=== PATIENT | female | born 1995 | race American Indian/Alaskan Native ===

== ENCOUNTER 2020-06-17 11:55 | Emergency (ER) | payer MEDICAID ==
--- NOTE | 2020-06-17 12:31 | Event Note ---
ED Screening Note ED Screening Note: pt states she is having lower abd cramping +nausea no vomiting no vaginal bleeding states she took an at home test and believes it was positive states she also has right eye itching/burning denies getting anything in the eye no vision changes LNMP: 05/25/2020 This initial assessment/diagnostic orders/clinical plan/treatment(s) is/are subject to change based on patients health status, clinical progression and re- assessment by fellow clinical providers in the ED. Further treatment and workup at subsequent clinical providers discretion. Patient/guardian urged not to elope from the ED as their condition may be serious if not clinically assessed and managed. Initial orders include: UA, hcg
[2020-06-17] MEDS ORDERED: FLUORESCEIN 1 MG STRIP OP ONE (13:39)
[2020-06-17] MEDS ORDERED: TETRACAINE 0.5% OPHTH SOLN 4ML OU ONE (13:39)
[2020-06-17 13:45] LABS: Bacteria,Urine 1+ /HPF (Negative); Bilirubin,Urine NEG (Negative); Blood,Urine NEG (Negative); Color,Urine Yellow (Yellow); Mucus,Urine FEW /HPF; Protein,Urine <15 mg/dL mg/dL (Negative); Urobilinogen,Urine < 2.0 mg/dL (<2.0)
[2020-06-17 14:31] VITALS: BP 129/84
[2020-06-17] MEDS ORDERED: DIPHtheria,PERTUSSIS(ACELL),TETANUS VACCINE/PF 0.5 ML VIAL IM ONE (14:40)
--- NOTE | 2020-06-17 14:40 | Emergency Department Report ---
Eye Injury/Foreign Body - HPI Duration: 1 Day Eye Location: Right Severity: Mild Tetanus Status: Not up to Date Eye Symptoms: Eye Pain: Yes, Blurred Vision: No, Eye Redness: Yes, Grinding/Hammering Metal: No, Contact Lens Use: No, Photophobia: No Other History: This is a 25-year-old female nontoxic, well nourished in appearance, no acute signs of distress presents to the ED with c/o of right eye redness, itching and burning sensation x 1 day. Patient also requesting for pregnacy test. Denies any abdominal pain, flank pain or urinary symptoms. Denies any vaginal bleeding. Patient denies any trauma to the eye. Denies any foreign body sensation or floaters. Patient denies any eye pain. Patient denies any visual changes or decreased vision. Patient denies any fever, chills, nausea, vomiting, chest pain, breath, headache, stiff neck numbness or tingling. Patient denies any allergies. ED Review of Systems ROS: Stated complaint: RT EYE PAIN/ TEST Other details as noted in HPI Comment: All other systems reviewed and negative Constitutional: denies: chills, fever Eyes: eye pain. denies: eye discharge, vision change ENT: denies: ear pain, throat pain Respiratory: denies: cough, shortness of breath, wheezing Cardiovascular: denies: chest pain, palpitations Endocrine: no symptoms reported Gastrointestinal: denies: abdominal pain, nausea, diarrhea Genitourinary: denies: urgency, dysuria, discharge Musculoskeletal: denies: back pain, joint swelling, arthralgia Skin: denies: rash, lesions Neurological: denies: headache, weakness, paresthesias Psychiatric: denies: anxiety, depression Hematological/Lymphatic: denies: easy bleeding, easy bruising ED Past Medical Hx - Past Medical History Previous Medical History?: Yes Hx Hypertension: No Hx Diabetes: No Hx Deep Vein Thrombosis: No Hx Renal Disease: No Hx Sickle Cell Disease: No Hx Arthritis: Yes Hx Seizures: No Hx Asthma: No Hx HIV: No - Social History Smoking Status: Never Smoker Substance Use Type: None - Medications Home Medications: Home Medications Medication Instructions Recorded Confirmed Last Taken Type Albuterol Sulfate [Ventolin HFA] 2 puff IH Q4H PRN #1 hfa.aer.ad 06/04/13 Unknown Rx Azithromycin [Zithromax Z-JOHANNA] 250 mg PO DAILY #6 tab 06/04/13 Unknown Rx Codeine Phosphate/Guaifenesin 10 ml PO Q6H PRN #8 oz 06/04/13 Unknown Rx [Guaifenesin-Codeine Syrup] Prednisone 40 mg PO QDAY #10 tablet 06/04/13 Unknown Rx Polymyxin B Sulf/Trimethoprim 2 drops OD TID #1 drops 06/17/20 Unknown Rx [Polytrim Eye Drops] cephALEXin [Keflex] 500 mg PO Q8HR #21 cap 06/17/20 Unknown Rx Eye Injury Exam - Exam General: Vital signs noted. No distress. Alert and acting appropriately. Physical exam GENERAL: The patient is a well-developed, well-nourished in no apparent distress. Patient is alert and acting appropriately for age. Alert and oriented 3, no apparent distress, normal gait, atraumatic. HEENT: Head is normocephalic and atraumatic. PERRL, Extraocular muscles are intact. Pupils are equal, round, and reactive to light and accommodation. Nares appeared normal. Mouth is well hydrated and without lesions. Mucous membranes are moist. Posterior pharynx clear of any exudate or lesions. Mouth is well hydrated and without lesions. Tonsils not erythematous or swollen. Uvula midline. Tongue elevated. Mucous members are moist. Posterior pharynx clear, no exudate or lesions. Patent airways. Under Choi lamp, I used fluorescein and tetracaine to examine cornea for corneal abrasion or foreign body. There is a coronary abrasion small to right eye without any foreign body noted upon exam. Tonopen: 12, 10, 11 right eye. Visual exam: 20/20-right 20/20-left 20/20-bilateral LUNGS: RRR HEART: Regular rate NEUROLOGIC: Alert and oriented x 3. Normal gait. PSYCHIATRIC: Normal affect with no suicidal or homicidal ideations. ED Course Vital Signs 06/17/20 12:11 Pulse Rate 87 Respiratory 16 Rate Blood Pressure 129/84 O2 Sat by Pulse 100 Oximetry - Reevaluation(s) Reevaluation #1: 06/17/20 14:44 Patient is speaking in full sentences with no signs of distress noted. ED Medical Decision Making - Medical Decision Making 25-year-old female that presents with corneal abrasion. Patient is stable and was examined by me. Patient be treated with Polytrim. Urine and test has been ordered in triage with urine showing UTI. Patient be treated as well with Keflex. Patient was instructed to follow-up with a mig tig welder doctor in 2 days or if symptoms worsen and continue return to emergency room as soon as possible. At time of discharge, the patient does not seem toxic or ill in appearance. No acute signs of distress noted. Patient agrees to discharge treatment plan of care. No further questions noted by the patient. Critical care attestation.: If time is entered above; I have spent that time in minutes in the direct care of this critically ill patient, excluding procedure time. ED Disposition Clinical Impression: UTI (urinary tract infection) Qualifiers: Urinary tract infection type: acute cystitis Hematuria presence: without hematuria Qualified Code(s): N30.00 - Acute cystitis without hematuria Right corneal abrasion Qualifiers: Encounter type: initial encounter Qualified Code(s): S05.01XA - Injury of conjunctiva and corneal abrasion without foreign body, right eye, initial encounter Disposition: TO HOME OR SELFCARE Is pt being admited?: No Does the pt Need Aspirin: No Condition: Stable Instructions: Corneal Abrasion, [id number], Urinary Tract Infection, Adult Additional Instructions: Follow-up with a mig tig welder doctor in 2 days or if symptoms worsen and continue return to emergency room as soon as possible. Prescriptions: cephALEXin [Keflex] 500 mg PO Q8HR #21 cap Polymyxin B Sulf/Trimethoprim [Polytrim Eye Drops] 2 drops OD TID #1 drops Referrals: PRIMARY CAREMD [Referring] - 3-5 Days KYAW RASHEED MD [Staff Physician] - 3-5 Days Forms: Work/School Release Form(ED)
== END 2020-06-17 15:06 | disposition home or self-care (01) ==
LOC: ED 11:55
DX: S05.01XA Injury of conjunctiva and corneal abrasion without foreign body, right eye, initial encounter (principal); N39.0 Urinary tract infection, site not specified; Z79.2 Long term (current) use of antibiotics; Z79.899 Other long term (current) drug therapy; X58.XXXA Exposure to other specified factors, initial encounter; Y93.89 Activity, other specified; Y92.89 Other specified places as the place of occurrence of the external cause; Y99.8 Other external cause status
CPT/HCPCS: 36415; 81001; 84702; 87076; 87086; 87186; 90471; 90715